=== PATIENT | female | born 1995 | race Caucasian/White ===

== ENCOUNTER 2016-10-06 20:54 | Emergency (ER) | payer OTHER ==
[~2016-10-06] VITALS: Ht 165.1 cm; Wt 90.7 kg
[~2016-10-06 20:54] MED LIST: AC325T PO; ACHD5005 PO; SERT50TA9 PO; SULF-222 PO
--- OUTSIDE RECORDS SUMMARY | 2016-10-06 20:59 | XMS REPORT | Continuity of Care Document ---
Author Author [facility] Organization [facility] Address Unknown Phone Unavailable Care Team Providers Care Distribution Field Technician Name Role Phone JANET HOBBS DO PCP Insurance Providers Payer Name Policy Number Subscriber Name Relationship [facility] [id number] Liliana Man 19 Mother Advance Directives Directive Response Recorded Date/Time Advance Directives No 05/29/14 12:02pm Health Care Power of Warning Coordination Meteorologist No 05/29/14 12:02pm Organ Donor Yes 05/29/14 12:02pm Resuscitation Status Full Code 05/29/14 12:02pm Resuscitation Status Full Code 05/29/14 11:48am Problems No known problems or medical conditions. Medications Medication Dose Route Sig Days/Qty Instructions Order Date Discontinued Date Status Trimethoprim/Sulfamethoxazole 1 Tab PO TWICE A DAY 10 DAY THERAPY- 5 DOSES TAKEN 05/29/14 Active Sertraline Hcl 50 Mg PO DAILY 05/29/14 Active Acetaminophen 650 Mg PO EVERY 8HRS PRN PAIN 05/29/14 Active Acetaminophen/Hydrocodone Bitart 1-2 Tab PO EVERY 4HRS PRN PAIN 35 Qty 05/30/14 Active Social History Social History Problem Response Recorded Date/Time Alcohol Use Denies Use 05/29/2014 12:40pm Recreational Drug Use No 05/29/2014 12:40pm Recent Foreign Travel No 05/29/2014 12:40pm Recent Infectious Disease Exposure No 05/29/2014 12:40pm Hospitalization with Isolation Denies 05/30/2014 11:55am Smoking Status Never a Smoker 05/29/2014 12:13pm Query Response Start Date Stop Date Smoking Status Never a Smoker Hospital Discharge Instructions No hospital discharge instructions. Plan of Care Discharge Date 05/30/14 11:20am Disposition 01 HOME, SELF-CARE Instructions/Education Provided ABSCESS Forms Provided PDI Surgical Prescriptions See Medications Section Referrals (Unspecified) Functional Status Query Response Date Recorded Patient Orientation Person Place Time Situation May 30, 2014 11:55am Comprehension Ability Understands Concepts May 29, 2014 6:14pm Allergies, Adverse Reactions, Alerts Allergen Type Severity Reaction Status Last Updated No Known Drug Allergies Active 05/29/14 Immunizations Name Given Type Hepatitis A No Historical Hepatitis B No Historical Tetanus Booster (TDap) Less than 5yrs Historical Vital Signs Acute Vital Signs Vital Response Date/Time Temperature (Fahrenheit) 98.2 degrees F (97.6 - 99.5) Temperature (Calculated Celsius) 36.10101 degrees C (36.4 - 37.5) Temperature Source Tympanic Pulse Rate (adult) 92 bpm (60 - 90) Respiratory Rate 18 bpm (12 - 24) O2 Sat by Pulse Oximetry 100 % (88 - 100) Blood Pressure 134/82 mm Hg Pain Pain Intensity 3 Height (Feet) 5 feet Height (Inches) 5.00 inches Height (Calculated Centimeters) 165.640938 cm Weight (Pounds) 183 pounds Weight (Ounces) 2.0 oz Weight (Calculated Grams) 19088.104 gm Weight (Calculated Kilograms) 83.406664 kilograms Calculated BMI 30.45 Results No known relevant diagnostic tests, laboratory data and/or discharge summary. Procedures Procedure Status Date Provider(s) Excision of pilonidal cyst completed 05/29/14 JAX MORA MD Encounters Encounter Location Date/Time Discharged Inpatient Via [facility] 05/29/14 11:47am
[2016-10-06] MEDS ORDERED: AMOX875T2 PO (21:14)
[2016-10-06] MEDS ORDERED: METH4TAB PO (21:14)
[2016-10-06] MEDS ORDERED: LORA1TAB59 PO (21:39)
[2016-10-06] MEDS ORDERED: KETO10TA PO (21:39)
--- NOTE | 2016-10-06 21:40 | ED EENT ---
History of Present Illness General Chief Complaint: Ear Problems Stated Complaint: L EAR PAIN Nursing Triage Note: pt c/o severe left ear pain, along with mild right ear pain. she was started on amoxicillin et prednisone yesterday. she reports pain is worsening. Source: patient History of Present Illness Time seen by provider: 21:28 Initial Comments C/O BILATERAL EAR PAIN SINCE Sunday09/30/16--LEFT > RIGHT EAR SEEN BY DR. HOBBS YESTERDAY FOR THIS PROBLEM AND WAS GIVEN RX'S FOR PREDNISONE AND AMOXIL 875 MG--STATES SHE IS NOT ANY BETTER HAS HISTORY OF FREQUENT EAR INFECTIONS --AT LEAST TWICE A YEAR HAS NOT TAKEN ANYTHING FOR PAIN AT ANY TIME NO OTHER SYMPTOMS NO FEVER PCP: DR. HOBBS Allergies and Home Medications Allergies Coded Allergies: No Known Drug Allergies (Unverified , 05/29/14) Home Medications Amoxicillin 875 Mg Tablet 875 MG PO BID (Reported) Ketorolac Tromethamine 10 Mg Tablet #15 10 MG PO Q6H Prescribed by: AMRITA AG on 10/06/162138 Loratadine/Pseudoephedrine 1 Each Tab.er.12h #20 1 EACH PO BID Prescribed by: AMRITA AG on 10/06/162138 Methylprednisolone 4 Mg Tab.ds.pk 4 MG PO (Reported) Sertraline Hcl 50 Mg Tablet 50 MG PO DAILY (Reported) Review of Systems Constitutional: no symptoms reportedNo fever Eyes: No Symptoms Reported Ears: See HPIDenies Dizziness, PainDenies Tinnitus, Denies Bloody Discharge, Denies Clear Discharge, Denies Purulent Discharge, Denies Serosanguinous Discharge, Denies Previous Injury Nose: no symptoms reported Mouth: no symptoms reported Throat: no symptoms reported Respiratory: no symptoms reported Cardiovascular: no symptoms reported Gastrointestinal: no symptoms reported : No LMP: Sep 24, 2016 (NO CONTROL) Skin: no symptoms reported Neurological: No Symptoms Reported Hematologic/Lymphatic: No Symptoms Reported Immunological/Allergic: no symptoms reported Past Jjfbmfh-Xolisj-Fkmdfw Hx Patient Social History Alcohol Use: Occasionally Uses Recreational Drug Use: No Smoking Status: Never a Smoker Recent Foreign Travel: No Contact w/Someone Who Travel: No Recent Infectious Disease Expo: No Recent Hopitalizations: No Physical Abuse Screen: No Sexual Abuse: No Immunizations Up To Date Tetanus Booster (TDap): Less than 5yrs Seasonal Allergies Seasonal Allergies: Yes Surgeries HX Surgeries: Yes (PILONIDAL CYST REMOVAL) Respiratory Hx Respiratory Disorders: No Cardiovascular Hx Cardiac Disorders: No Neurological Hx Neurological Disorders: No Reproductive System Hx Reproductive Disorders: No Genitourinary Hx Genitourinary Disorders: Yes (PAST UTI'S) Gastrointestinal Hx Gastrointestinal Disorders: No Musculoskeletal Hx Musculoskeletal Disorders: No Endocrine Hx Endocrine Disorders: No HEENT HX ENT Disorders: Yes (ALLERGIES AT TIMES) HEENT Disorders: Chronic Ear Infection Cancer Hx Cancer: No Psychosocial Hx Psychiatric Problems: Yes Behavioral Health Disorders: Anxiety Integumentary HX Skin/Integumentary Disorder: Yes (SMALL ABCESS IN BUTTOCKs AREA IN MARCH(NON SURGICAL); PILONIDAL CYST REMOVED) Blood Transfusions Hx Blood Disorders: No Family Medical History Family Medial History: Cardiovascular disease GRAND MA Diabetes mellitus 19 MOTHER Hypertension 19 MOTHER Thyroid disease [place]AND [place] Visual disorder 19 MOTHER No Family History of: Tuberculosis Physical Exam Vital Signs Vital Sign - Last 12Hours 10/06/16 10/06/16 21:11 22:12 Temp 98.4 Pulse 87 Resp 18 B/P 155/97 Pulse Ox 98 O2 Delivery Room Air General Appearance: WD/WN no apparent distress Eyes: bilateral eye EOMI, bilateral eye PERRL, bilateral eye normal inspection Ears: bilateral ear other (TMS' SCLEROTIC, INFLAMED BILATERALLY WITH EFFUSIONS) Nose: normal inspection Mouth/Throat: normal mouth inspection pharynx normal Neck: non-tender full range of motion supple normal inspectionNo lymphadenopathy (R), No lymphadenopathy (L) Cardiovascular: regular rate, rhythm no murmur Respiratory: normal breath sounds no respiratory distress no accessory muscle use 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 Referrals: JANET HOBBS DO (PCP/Family) Primary Care Physician Patient Instructions: Ear Infections (Otitis Media) (DC) Add. Discharge Instructions: DOUBLE YOUR AMOXICILLIN DOSE TO 2 PILLS TWICE A DAY CONTINUE PREDNISONE PRESCRIBED TYLENOL 1 GRAM 4 TIMES A DAY NEEDED FOR PAIN OR FEVER FOLLOW UP WITH DR. HOBBS IN 3-4 DAYS FOR FURTHER CARE All discharge instructions reviewed with patient and/or family. Voiced understanding. Scripts Ketorolac Tromethamine 10 Mg [id number] Mg PO Q6H Pain #15 TAB Prov:AMRITA AG DO 10/06/16 Loratadine/Pseudoephedrine (Claritin-D 12 Hour Tablet)1 Each Tab.er.12h1 Each PO BID #20 TAB Prov:AMRITA AG DO 10/06/16 AMRITA AG DO Oct 06, 2016 21:39
[2016-10-06] MEDS ORDERED: cefTRIAXone 1 GM (ROCEPHIN) VIAL IM ONE (21:45)
[2016-10-06] MEDS ORDERED: KETOROLAC 60 MG/2 ML VIAL IM ONE (21:45)
[2016-10-06] MEDS ORDERED: LIDOCAINE 1% INJ 20 ML (XYLOCAINE) VIAL INJ ONE (21:45)
[2016-10-06 22:12] VITALS: BP 142/97
== END 2016-10-06 22:11 | disposition home or self-care (01) ==
LOC: EDUNIT# 20:54 → ER 20:55
DX: H65.192 Other acute nonsuppurative otitis media, left ear (principal)
CPT/HCPCS: 96372; 99283

== ENCOUNTER 2020-04-30 14:02 | Day surgery (SDC) | payer BC ==
[~2020-04-30] VITALS: Ht 162.6 cm; Wt 105.5 kg
[2020-04-30] VITALS (9 sets, daily range): BP systolic 103–139; BP diastolic 59–88
[~2020-04-30 14:02] MED LIST changes: +AMOX875T2 PO; +KETO10TA PO; +LORA1TAB59 PO; +METH4TAB PO
[2020-04-30] MEDS ORDERED: ONDANSETRON 4 MG/2 ML (SDV) Z0FRAN ONE (14:18)
[2020-04-30] MEDS ORDERED: LIDOCAINE PF 2% 5 ML (XYLOCAINE) VIAL ONE (14:18)
[2020-04-30] MEDS ORDERED: proPOfol 200 MG/20 ML (DIPRIVAN) VIAL IV ONE ×2 (14:18→16:06)
[2020-04-30] MEDS ORDERED: SEVOFLURANE (ULTANE) 15 ML INHAL SOLN ONE ×4 (14:18→16:16)
[2020-04-30] MEDS ORDERED: MIDAZOLAM 2 MG/2 ML (VERSED) VIAL ONE (14:18)
[2020-04-30] MEDS ORDERED: fentaNYL INJECTION 100 MCG/2 ML AMP ONE (14:18)
[2020-04-30] MEDS ORDERED: LACTATED RINGERS 1,000 ML IV PRN (14:27)
[2020-04-30] MEDS ORDERED: ceFAZolin INJECTION 1,000 MG in WATER (STERILE) FOR INJECTION 10 ML IV ONE (14:45)
[2020-04-30 14:47] LABS: BASOPHILS % (AUTO) 0 % (0-10); EOSINOPHILS # (AUTO) 0.1 10^3/uL (0.0-0.3); EOSINOPHILS % (AUTO) 1 % (0-10); HEMATOCRIT 36 % (35-52); HEMOGLOBIN 12.1 G/DL (11.5-16.0); LYMPHOCYTES # (AUTO) 2.6 X 10^3 (1.0-4.0); LYMPHOCYTES % (AUTO) 21 % (12-44); MEAN CORPUSCULAR HEMOGLOBIN 29 PG (25-34); MEAN CORPUSCULAR HGB CONC 33 G/DL (32-36); MEAN CORPUSCULAR VOLUME 88 FL (80-99); MEAN PLATELET VOLUME 11.4 FL (7.4-10.4); MONOCYTES # (AUTO) 0.6 X 10^3 (0.0-1.0); MONOCYTES % (AUTO) 5 % (0-12); NEUTROPHILS # (AUTO) 9.2 X 10^3 (1.8-7.8); NEUTROPHILS % (AUTO) 74 % (42-75); PLATELET COUNT 340 10^3/uL (130-400); RED CELL DISTRIBUTION WIDTH 13.5 % (10.0-14.5); WHITE BLOOD COUNT 12.4 10^3/uL (4.3-11.0)
[2020-04-30] MEDS ORDERED: morphine INJ 10 MG/ML 1ML (SYR OR VIAL) IVP ONE (15:00)
[2020-04-30] MEDS ORDERED: MEPERIDINE (DEMEROL) INJ 50 MG/ML IVP ONE (15:00)
[2020-04-30] MEDS ORDERED: ONDANSETRON 4 MG/2 ML (SDV) Z0FRAN IVP PRN (15:00)
[2020-04-30] MEDS ORDERED: fentaNYL INJECTION 100 MCG/2 ML AMP IVP ONE (15:00)
--- NOTE | 2020-04-30 15:48 | Progress Note-Pre Operative ---
Pre-Operative Progress Note H&P Reviewed The H&P was reviewed, patient examined and no changes noted. Date Seen by Provider: Apr 30, 2020 Time Seen by Provider: 15:48 Date H&P Reviewed: Apr 30, 2020 Time H&P Reviewed: 15:48 Pre-Operative Diagnosis: missed MAXIMO VILLAR MD Apr 30, 2020 15:48
[2020-04-30] MEDS ORDERED: IBUP-1780 PO (15:49)
--- NOTE | 2020-04-30 15:49 | Progress Note-Post Operative ---
Post-Operative Progess Note Surgeon (s)/Housekeeping Department Worker (s) Surgeon MAXIMO VILLAR MD Housekeeping Department Worker: none Pre-Operative Diagnosis missed Post-Operative Diagnosis same Procedure & Operative Findings Date of Procedure 04/30/20 Procedure Performed/Findings d&c Anesthesia Type geta Estimated Blood Loss Estimated blood loss (mL): 50CC Specimens/Packing Specimens Removed POC/ Uterina contents MAXIMO VILLAR MD Apr 30, 2020 15:49
--- NOTE | 2020-04-30 15:50 | Discharge Inst-Surgical ---
Discharge Inst-Surgical Depart Medication/Instructions New, Converted or Re-Newed RX: RX on Chart Consults/Follow Up Patient Instructions: as directed Orders & Referrals Follow Up Appt: Call to make follow up appt. for patient in 2 weeks. Activity: Rest for 24 hours, than as tolerated. Please call in RX to patient pharmacy. Diet: As tolerated shower or tub bathe as desired. No driving for 24 hours, no alcoholic beverages for 24 hours, and nothing per vagina (no tampons, douching, or intercoarse) for 2 weeks. Patient to return to the clinic as soon as possible for: Temperature greater than 101F, Severe Pain, Foul discharge from incision or vagina, Excessive Bleeding (more than a period). Activity Activity as Tolerated: No Diet Discharge Diet: No Restrictions MAXIMO VILLAR MD Apr 30, 2020 15:50
[2020-04-30] MEDS ORDERED: HYDROmorphone 2 MG/ML VIAL (DILAUDID) ONE (16:11)
--- NOTE | 2020-04-30 16:25 | Anesthesia-General Post-Op ---
General Patient Condition Mental Status/LOC: Same as Preop Cardiovascular: Satisfactory Nausea/Vomiting: Absent Respiratory: Satisfactory Pain: Controlled Complications: Absent Post Op Complications Complications None Follow Up Care/Instructions Patient Instructions None needed. Anesthesia/Patient Condition Patient Condition Patient is doing well, no complaints, stable vital signs, no apparent adverse anesthesia problems. No complications reported per nursing. LEYDA DIAZ CRNA Apr 30, 2020 16:25
--- NOTE | 2020-04-30 17:25 | NUR ---
Receive pt form PACU on cart bed rails up x 4. Pt alert and oriented. IV infusing without difficulty.
--- NOTE | 2020-04-30 18:04 | NUR ---
Notified Dr Herrera of discharge.
--- NOTE | 2020-04-30 18:15 | NUR ---
Pt up to BR voided without difficulty. Ambulated without difficulty. Bernadette care. No c/o at this time.
--- NOTE | 2020-04-30 19:00 | NUR ---
LISA MONGE demonstrates understanding of discharge instructions and accurately returns instructions upon questioning. Copy of Post-Discharge Instructions and Medication Discharge Instructions given to patient. LISA MONGE is able to manage continuing needs after discharge. Patients belongings returned to patient. Skin dry and intact; no breakdown noted. Patient discharged from [facility]- on 04/30/2020 at 1900. LISA MONGE left floor via wheel chair, accompanied by and women services staff.
--- NOTE | 2020-04-30 22:45 | OPERATIVE REPORT ---
DATE OF SERVICE: 04/30/2020 PREOPERATIVE DIAGNOSIS: Missed at 10 plus weeks' gestation. POSTOPERATIVE DIAGNOSIS: Missed at 10 plus weeks' gestation. OPERATIVE PROCEDURE: D and C. OPERATIVE DESCRIPTION: With the patient in supine position under satisfactory general anesthesia, the patient was prepped and draped in the usual fashion for vaginal surgery after being repositioned in the dorsal lithotomy position in the [facility]. Weighted speculum was placed in the posterior fornix of vagina and cervix was grasped anteriorly with single tooth tenaculum. The uterus was sounded to 12 cm with uterine sound. The cervix was then serially dilated to a #10 Hegar dilator. A #10 curved suction curette was then introduced and a large amount of trophoblastic and decidual appearing tissue as well as blood clot and debris was evacuated from the uterine cavity. The endometrial cavity was then sharply curettaged in all 4 quadrants to good uterine cry. A curved suction curette was reintroduced and all blood clot and debris evacuated from the uterus. The curette was removed. There was minimal bleeding at the cervical os. The tenaculum was removed from the cervix. There was no bleeding from the puncture sites. With sponge, needle counts correct and hemostasis assured and blood loss around 50 to 70 mL. The patient was uneventfully awakened from her general anesthesia and transferred to recovery room in stable condition with plans for discharge home PAR. Sponge and needle counts were correct. Job ID: [id number] DocumentID: [id number] Dictated Date: 04/30/2020 16:18:55 Bellows Tester Date: 04/30/2020 22:45:06 Dictated By: MAXIMO VILLAR MD
== END 2020-04-30 19:00 | disposition home or self-care (01) ==
LOC: SDC 14:02 → WS 17:25 → SDC 19:00
PROVIDERS: ATTEND Obstetrics & Gynecology
DX: O02.1 Missed abortion (principal)
CPT/HCPCS: 36415; 85025; 87081; 88305

== ENCOUNTER → 2020-12-24 | Outpatient (CLI) | payer BC ==
[~2020-12-24] MED LIST changes: +IBUP-1780 PO
[2020-12-24 14:44] LABS: URINE CREATININE FOR RATIO 27 MG/DL (30-125)
[2020-12-24 14:46] LABS: URINE PROTEIN FOR RATIO ONLY < 6 MG/DL (6-12)
== END ==
LOC: LABNPT 14:11
PROVIDERS: ATTEND Obstetrics & Gynecology
DX: O13.9 Gestational [pregnancy-induced] hypertension without significant proteinuria, unspecified trimester (principal); Z3A.00 Weeks of gestation of pregnancy not specified
CPT/HCPCS: 82570; 84156

== ENCOUNTER → 2021-01-17 | Outpatient (CLI) | payer BC | LOC: LABNPT 09:06 | PROVIDERS: ATTEND Obstetrics & Gynecology | DX: R80.9 Proteinuria, unspecified (principal) | CPT/HCPCS: 82570; 84156 ==

== ENCOUNTER → 2021-01-27 | Outpatient (CLI) | payer BC | LOC: LABNPT 11:50 | PROVIDERS: ATTEND Obstetrics & Gynecology | DX: O14.93 Unspecified pre-eclampsia, third trimester (principal); Z3A.00 Weeks of gestation of pregnancy not specified | CPT/HCPCS: 82570; 84156 ==

== ENCOUNTER → 2021-02-15 | Outpatient (CLI) | payer BC | LOC: LABNPT 12:07 | PROVIDERS: ATTEND Obstetrics & Gynecology | DX: O13.9 Gestational [pregnancy-induced] hypertension without significant proteinuria, unspecified trimester (principal); Z3A.00 Weeks of gestation of pregnancy not specified | CPT/HCPCS: 82570; 84156 ==

== ENCOUNTER → 2021-02-21 | Outpatient (CLI) | payer BC | LOC: LABNPT 09:59 | PROVIDERS: ATTEND Obstetrics & Gynecology | DX: O13.9 Gestational [pregnancy-induced] hypertension without significant proteinuria, unspecified trimester (principal); Z3A.00 Weeks of gestation of pregnancy not specified | CPT/HCPCS: 82570; 84156 ==

== ENCOUNTER 2021-02-24 06:50 | Inpatient (IN) | payer BC ==
[~2021-02-24] VITALS: Ht 165.1 cm; Wt 113.2 kg
[2021-02-24] VITALS (56 sets, daily range): BP systolic 101–152; BP diastolic 56–93
[2021-02-24] MEDS ORDERED: D5 LR IV SOLUTION 1,000 ML IV ONE (07:34)
[2021-02-24] MEDS ORDERED: OXYTOCIN PRE-MIX DRIP 500 ML IV ONE ×2 (07:53→19:04)
[2021-02-24 07:57] LABS: BASOPHILS % (AUTO) 0 % (0-10); EOSINOPHILS # (AUTO) 0.1 10^3/uL (0.0-0.3); EOSINOPHILS % (AUTO) 1 % (0-10); HEMATOCRIT 32 % (35-52); HEMOGLOBIN 10.5 g/dL (11.5-16.0); LYMPHOCYTES # (AUTO) 2.1 10^3/uL (1.0-4.0); LYMPHOCYTES % (AUTO) 16 % (12-44); MEAN CORPUSCULAR HEMOGLOBIN 28 pg (25-34); MEAN CORPUSCULAR HGB CONC 33 g/dL (32-36); MEAN CORPUSCULAR VOLUME 87 fL (80-99); MEAN PLATELET VOLUME 12.7 fL (9.0-12.2); MONOCYTES # (AUTO) 0.7 10^3/uL (0.0-1.0); MONOCYTES % (AUTO) 5 % (0-12); NEUTROPHILS # (AUTO) 9.9 10^3/uL (1.8-7.8); NEUTROPHILS % (AUTO) 77 % (42-75); PLATELET COUNT 269 10^3/uL (130-400); WHITE BLOOD COUNT 12.8 10^3/uL (4.3-11.0)
[2021-02-24] MEDS ORDERED: OXYTOCIN PRE-MIX DRIP 500 ML IV SCH ×2 (08:00→20:00)
[2021-02-24] MEDS: D5 LR IV SOLUTION 1,000 ML IV SCH ×2 (08:14→14:30)
[2021-02-24] MEDS ORDERED: fentaNYL 2 mcg/ml BUPIVA 0.125 100 ML ONE (10:29)
[2021-02-24] MEDS ORDERED: BUPIVACAINE 0.25% 30 ML (SENSORCAINE) VIAL ONE ×2 (10:43→18:52)
[2021-02-24] MEDS ORDERED: fentaNYL INJ 100 MCG/2 ML AMP ONE ×3 (10:44→19:01)
[2021-02-24] MEDS ORDERED: PREN-8 PO (10:48)
[2021-02-24] MEDS ORDERED: LACTATED RINGERS 1,000 ML IV ONE (11:30)
[2021-02-24] MEDS ORDERED: CATHETER FLUSH 10 ML SYR IV PRN (11:30)
[2021-02-24] MEDS ORDERED: NALOXONE 0.4 MG/ML 1 ML (NARCAN) VIAL IV PRN (11:30)
[2021-02-24] MEDS ORDERED: fentaNYL 2 mcg/ml BUPIVA 0.125 100 ML IV SCH (11:30)
[2021-02-24] MEDS ORDERED: ceFAZolin 2 GM IV Premixed 50 ML ONE (17:16)
[2021-02-24] MEDS ORDERED: metroNIDAZOLE 500MG/100ML IVPB 100 ML ONE (17:16)
[2021-02-24] MEDS ORDERED: FAMOTIDINE 20MG/2ML IV (PEPCID) ONE (17:17)
[2021-02-24] MEDS ORDERED: CITRIC ACID/SOB CIT (BICITRA) 30 ML UDC ONE (17:17)
[2021-02-24] MEDS ORDERED: METOCLOPRAMIDE INJ 10 MG/2 ML (REGLAN) ONE (17:17)
[2021-02-24] MEDS: LACTATED RINGERS 1,000 ML IV PRN ×2 (17:28→19:00)
[2021-02-24] MEDS ORDERED: METOCLOPRAMIDE INJ 10 MG/2 ML (REGLAN) IV ONE (17:30)
[2021-02-24] MEDS ORDERED: CITRIC ACID/SOB CIT (BICITRA) 30 ML UDC PO ONE (17:30)
[2021-02-24] MEDS ORDERED: FAMOTIDINE 20MG/2ML IV (PEPCID) IV ONE (17:30)
[2021-02-24] MEDS ORDERED: LIDOCAINE PF 2% 5 ML (XYLOCAINE) VIAL ONE ×2 (18:39→18:56)
[2021-02-24] MEDS ORDERED: ONDANSETRON 4 MG/2 ML (SDV) Z0FRAN ONE (19:04)
[2021-02-24] MEDS ORDERED: KETOROLAC 30 MG/ML VIAL ONE (19:04)
[2021-02-24] MEDS: KETOROLAC 30 MG/ML VIAL IVP SCH (19:30)
[2021-02-24] MEDS ORDERED: oxyCODONE/APAP 5/325MG (PERCOCET 5) TABLET PO PRN (20:00)
[2021-02-24] MEDS ORDERED: ONDANSETRON 4 MG/2 ML (SDV) Z0FRAN IVP PRN (20:00)
[2021-02-24] MEDS ORDERED: BENZOCAINE/MENTHOL (DERMOPLAST) 56 ML CAN TP PRN (20:00)
[2021-02-24] MEDS: DOCUSATE SODIUM 100 MG (COLACE) CAP PO SCH (21:37)
[2021-02-24] MEDS ORDERED: oxyCODONE/APAP 10/325MG (PERCOCET 10) TABLET PO ONE (22:21)
[2021-02-24] MEDS: oxyCODONE/APAP 10/325MG (PERCOCET 10) TABLET PO PRN (22:23)
[2021-02-24] MEDS: OXYTOCIN PRE-MIX DRIP 500 ML IV SCH (23:44)
[2021-02-25] MEDS: OXYTOCIN PRE-MIX DRIP 500 ML IV SCH (01:39)
[2021-02-25] MEDS: KETOROLAC 30 MG/ML VIAL IVP SCH ×3 (01:39→20:28)
[2021-02-25 05:00] VITALS: BP 120/69
[2021-02-25 08:00] VITALS: BP 118/60
--- NOTE | 2021-02-25 08:18 | Progress Note ---
Standard Progress Note Progress Notes/Assess & Plan Date Seen by a Provider: Feb 25, 2021 Time Seen by a Provider: 08:17 Progress/Assessment & Plan This patient is without complaint. She is ambulating, voiding, tolerating oral intake well and has good pain control. Vital Signs 02/25/21 05:00 Temp 36.3 Pulse 85 Resp 18 B/P (MAP) 120/69 (86) Pulse Ox 96 O2 Delivery Room Air Vital signs are stable. Patient is afebrile. Fundus is firm below the umbilicus and nontender. The surgical incision is clean dry and intact. Extremities show no clubbing cyanosis. There is no Homans' sign. Assessment and plan postoperative day #1 status post primary delivery doing well. Plan is for routine convalescent care MAXIMO VILLAR MD Feb 25, 2021 08:18
--- NOTE | 2021-02-25 10:41 | Anesthesia-Regional Post-Op ---
Regional Patient Condition Mental Status: Alert, Oriented x3 Circulation: Same as Pre-Op Headache: Absent Sensation: Full Recovery Motor Block: Absent Post Op Complications Complications None Follow Up Care/Instructions Patient Instructions None needed. Anesthesia/Patient Condition Patient is doing well, no complaints, stable vital signs, no apparent adverse anesthesia problems. MONIQUE MIN DO Feb 25, 2021 10:41
[2021-02-25] MEDS ORDERED: IBUP-1780 PO (10:46)
[2021-02-25] MEDS ORDERED: OXYC1TAB12 PO ×2 (10:46→17:51)
[2021-02-25] MEDS ORDERED: DCS100C PO (10:46)
--- NOTE | 2021-02-25 10:47 | Discharge Inst-Surgical ---
Discharge Inst-Surgical Depart Medication/Instructions New, Converted or Re-Newed RX: RX on Chart Consults/Follow Up Patient Instructions: As directed Orders & Referrals Follow Up Appt: RTC 1 week for incision check. Call to make follow up appt. for patient in 4 weeks. Wound Care: Remove yuan, apply benzoin and steri strips. Activity Per routine post instructions. Please call in RX to patient pharmacy. Diet as tolerated Patient may shower or tub bathe as desired. Continue home meds Activity Activity as Tolerated: No Diet Discharge Diet: No Restrictions MAXIMO VILLAR MD Feb 25, 2021 10:47
[2021-02-25] MEDS ORDERED: IBUPROFEN 800 MG (MOTRIN) TAB PO ONE (12:02)
[2021-02-25] MEDS: IBUPROFEN 800 MG (MOTRIN) TAB PO SCH ×3 (12:08→23:03)
[2021-02-25] MEDS: DOCUSATE SODIUM 100 MG (COLACE) CAP PO SCH ×2 (12:08→21:43)
[2021-02-25 12:11] VITALS: BP 108/55
--- NOTE | 2021-02-25 14:45 | OPERATIVE REPORT ---
DATE OF SERVICE: 02/24/2021 PREOPERATIVE DIAGNOSES: Term in labor with failure to progress/high station. POSTOPERATIVE DIAGNOSES: Term in labor with failure to progress/high station. OPERATIVE PROCEDURE: Primary low transverse delivery of a viable male with Apgars of 8 and 9 at 1 and 5 minutes respectively, weight of 7 pounds 5 ounces. Cord blood pH of 7.31 and a time of 1859. OPERATIVE DESCRIPTION: With the patient in supine position under satisfactory epidural analgesia, the patient was prepped and draped in the usual fashion for abdominal surgery. Jones catheter was placed in the urinary bladder and left to dependent drainage. A Pfannenstiel incision was made through the skin with scalpel, the patient's abdomen entered in the usual manner. Bladder retractor placed in position, clean scalpel used to make a 4 cm hysterotomy incision transversely across the lower uterine segment that was extended by blunt dissection as well. Nj forceps were applied to facilitate the delivery of a vigorous viable male infant with Apgars and stats as noted above. was bulb suctioned on delivery of the head and again on completion of delivery. The umbilical cord was doubly clamped and cut and the infant passed to the pediatric nurse in attendance for the delivery. Cord bloods were obtained. Placenta delivered spontaneously Sanders. It was normal with a 3-vessel cord. The uterus was exteriorized and interior wiped clean with a wet laparotomy sponge. Uterine incision was closed with a running locked suture of 2-0 Vicryl. Hemostasis was satisfactory; however, the uterus was quite atonic. A modified B-Singh suture was placed using 2-0 chromic sutures in the usual manner. The uterus was then returned to abdominal cavity. All blood clot and debris removed from the abdominal cavity. With sponge and needle counts correct and hemostasis assured, anterior parietal peritoneum was closed with a running suture of 2-0 Vicryl. The rectus muscles were closed with that suture as well. The rectus fascia was closed with 2-0 Vicryl, subcutaneous tissue was closed with 2-0 Vicryl and the skin was stapled. Sponge and needle counts were correct on completion of the procedure. Estimated blood loss was around 300 mL. The patient tolerated the procedure well and was transferred to recovery room in stable condition. The infant remained in the OR with the patient. Job ID: [id number] DocumentID: [id number] Dictated Date: 02/25/2021 08:08:20 Pulp Beater Date: 02/25/2021 14:43:52 Dictated By: MAXIMO VILLAR MD
[2021-02-25] MEDS: oxyCODONE/APAP 10/325MG (PERCOCET 10) TABLET PO PRN (15:23)
[2021-02-25 16:00] VITALS: BP 126/68
[2021-02-25 23:00] VITALS: BP 134/69
[2021-02-26 04:30] VITALS: BP 128/72
[2021-02-26] MEDS: IBUPROFEN 800 MG (MOTRIN) TAB PO SCH (07:26)
--- NOTE | 2021-02-26 07:52 | History & Physical ---
History and Physical Date Seen by Provider: Feb 26, 2021 Time Seen by Provider: 07:51 This patient is a 25-year-old 1 female who was admitted on February 24, 2001 for labor induction secondary to PIH. Her has been uncomplicated. Her GBS culture was negative. Allergies are none Medications none Medical social and surgical history is all per the antepartum record HEENT exam is normal Neck is supple no lymphadenopathy no thyromegaly Abdomen is gravid soft nontender nondistended Extremities show no clubbing cyanosis. There is no Homans' sign. Pelvic exam is pending at the time of admission Assessment and plan term at 38+ weeks gestation with PIH admitted for labor induction. 38 weeks with PIH Allergies and Home Medications Allergies Coded Allergies: No Known Drug Allergies (Unverified , 04/30/20) Home Medications Docusate Sodium 100 Mg Capsule, 100 MG PO BID Prescribed by: MXAIMO CHAKRABORTY on 02/25/21 1046 Ibuprofen 800 Mg Tablet, 800 MG PO Q6H Prescribed by: MAXIMO CHAKRABORTY on 02/25/21 1046 Oxycodone HCl/Acetaminophen 1 Each Tablet, 1 TAB PO Q4HR PRN for PAIN-MODERATE (5-7) Prescribed by: MAXIMO CHAKRABORTY on 02/25/21 1046 Oxycodone HCl/Acetaminophen 1 Each Tablet, 1 TAB PO Q8H PRN for PAIN-MODERATE Prescribed by: MAXIMO CHAKRABORTY on 02/25/21 1751 Vit W-Ca,Fe,FA(<1 mg) 1 Each Tablet, 1 EACH PO DAILY, (Reported) Last Action: New Order Patient Home Medication List Home Medication List Reviewed: Yes MAXIMO VILLAR MD Feb 26, 2021 07:52
--- NOTE | 2021-02-26 07:53 | Progress Note ---
Standard Progress Note Progress Notes/Assess & Plan Date Seen by a Provider: Feb 26, 2021 Time Seen by a Provider: 07:52 Progress/Assessment & Plan This patient is without complaint. She is ambulating, voiding, tolerating oral intake well and has good pain control. Vital Signs 02/25/21 05:00 Temp 36.3 Pulse 85 Resp 18 B/P (MAP) 120/69 (86) Pulse Ox 96 O2 Delivery Room Air Vital signs are stable. Patient is afebrile. Fundus is firm below the umbilicus and nontender. The surgical incision is clean dry and intact. Extremities show no clubbing cyanosis. There is no Homans' sign. Assessment and plan postoperative day #1 status post primary delivery doing well. Plan is for routine convalescent care February 26, 2021 Patient is without complaint. She is ambulating, voiding, tolerating oral intake well has good pain control. Patient is requesting discharge home. Vital Signs Date Time Temp Pulse Resp B/P (MAP) Pulse Ox O2 Delivery O2 Flow Rate FiO2 02/26/21 04:30 36.5 88 18 128/72 (90) 97 Room Air 02/25/21 23:00 36.7 84 18 134/69 (90) 97 Room Air 02/25/21 16:00 36.6 78 18 126/68 (87) 96 Room Air 02/25/21 12:11 36.9 81 18 108/55 (72) 97 Room Air 02/25/21 08:00 36.7 84 18 118/60 (79) 97 Room Air I & O 02/26/21 07:00 Intake Total 800 ml Balance 800 ml Fundus is firm below the umbilicus and nontender. Extremities show no clubbing cyanosis. There is no Homans' sign. Assessment and plan Postoperative day #2 status post primary delivery doing well. Plan is for discharge home with follow-up in clinic Final Diagnosis 38-week primary delivery MAXIMO VILLAR MD Feb 26, 2021 07:53
[2021-02-26 09:56] VITALS: BP 144/82
[2021-02-26] MEDS: DOCUSATE SODIUM 100 MG (COLACE) CAP PO SCH (10:12)
[2021-02-26 11:20] VITALS: BP 144/82
[2021-03-01] MEDS ORDERED: IBUPROFEN 800 MG (MOTRIN) TAB PO SCH (20:00)
== END 2021-02-26 11:20 | disposition home or self-care (01) | DRG 788 ==
LOC: LDRP 06:50 → WS 20:35
PROVIDERS: ADMIT Obstetrics & Gynecology; ATTEND Obstetrics & Gynecology
PROC: 10D00Z1 Extraction of Products of Conception, Low, Open Approach (ICD-10-PCS; principal; 2021-02-25)
DX: O13.4 Gestational [pregnancy-induced] hypertension without significant proteinuria, complicating childbirth (principal); Z3A.38 38 weeks gestation of pregnancy; Z37.0 Single live birth; O62.0 Primary inadequate contractions; O32.4XX0 Maternal care for high head at term, not applicable or unspecified
CPT/HCPCS: 36415; 85025; 86850; 86900; 86901

== ENCOUNTER 2022-03-19 17:32 | Emergency (ER) | payer BC ==
[~2022-03-19] VITALS: Ht 162 cm; Wt 103.0 kg
[~2022-03-19 17:32] MED LIST changes: +DOCU-239 PO; +OXYC1TAB12 PO; +PREN-8 PO
--- NOTE | 2022-03-19 18:13 | ED Back Pain ---
General Chief Complaint: Back Problems Stated Complaint: BACK PAIN Nursing Triage Note: PT CO OF LOW BACK PAIN SINCE SUNDAY, WORSENING SUNDAY NITE PAIN GOES FROM 5-10/10 AT TIMES. DENIES ANY PROB W URINATION. PT WAS SEEN AT [facility] SUNDAY. DENIES INJURY Source of Information: Patient Exam Limitations: No Limitations History of Present Illness Date Seen by Provider: Mar 19, 2022 Time Seen by Provider: 18:12 Initial Comments Patient is a 26-year-old female who presents the ED with low back pain. Back pain has been ongoing since . She states she does work at [employer] and does lift heavy objects. Denies of any specific injury. Pain is described as sharp bilateral lower back. History of back pain but denies any similar type pain. She denies of any dark urine, frequent urination, abdominal pain, diar chele. She states she has vomited twice secondary to the pain. Has been taking ibuprofen without much improvement. She denies of any concern for , vaginal discharge, vaginal bleeding, chest pain, shortness of breath. No distal numbness and tingling to her lower extremity Allergies and Home Medications Allergies Coded Allergies: No Known Drug Allergies (Unverified , 04/30/20) Patient Home Medication List Home Medication List Reviewed: Yes Cephalexin (Cephalexin) 500 Mg Tablet, 500 MG PO TID Prescribed by: MICHAEL PETERS on 03/19/221846 Docusate Sodium (Dok) 100 Mg Capsule, 100 MG PO BID Prescribed by: MAXIMO CHAKRABORTY on 02/25/21 1046 Hydrocodone/Acetaminophen (Hydrocodone-Acetamin 5-325 mg) 5 Mg-325 Mg Tablet, 1 TAB PO Q4H PRN for PAIN-MODERATE (5-7) Prescribed by: MICHAEL PETERS on 03/19/22 184 Ibuprofen (Ibuprofen) 800 Mg Tablet, 800 MG PO Q6H Prescribed by: MAXIMO CHAKRABORTY on 02/25/21 1046 Oxycodone HCl/Acetaminophen (Percocet 10-325 mg Tablet) 1 Each Tablet, 1 TAB PO Q4HR PRN for PAIN-MODERATE (5-7) Prescribed by: MAXIMO CHAKRABORTY on 02/25/21 1046 Oxycodone HCl/Acetaminophen (Percocet 10-325 mg Tablet) 1 Each Tablet, 1 TAB PO Q8H PRN for PAIN-MODERATE Prescribed by: MAXIMO CHAKRABORTY on 02/25/21 1751 Vit W-Ca,Fe,FA(<1 mg) ( Formula) 1 Each Tablet, 1 EACH PO DAILY, (Reported) Entered as Reported by: PATRICIA DIOR on 02/24/21 1048 Review of Systems Constitutional: No chills, No diaphoresis, No malaise, No weakness EENTM: No ear pain, No blurred vision, No double vision Respiratory: No cough, No dyspnea on exertion, No phlegm, No short of breath Cardiovascular: No chest pain, No edema Gastrointestinal: No abdominal pain, No diarrhea, No nausea, No vomiting Genitourinary: No decreased output, No discharge, No hematuria, No hesitancy Musculoskeletal: back pain; No joint pain; muscle pain, muscle stiffness All Other Systems Reviewed Negative Unless Noted: Yes Past Ocxkwph-Vqgrgt-Dkxuks Hx Patient Social History Tobacco Use?: No Substance use?: No Alcohol Use?: No Pt feels they are or have been: No Immunizations Up To Date Tetanus Booster (TDap): Less than 5yrs First/Initial COVID19 Vaccinat: 2020 Second COVID19 Vaccination Christopher: 2019 COVID19 Vaccine Leadership Program Internship: [employer] Seasonal Allergies Seasonal Allergies: Yes Past Medical History Surgeries: Yes (PILONIDAL CYST REMOVAL) Respiratory: No Currently Using CPAP: No Currently Using BIPAP: No Cardiac: Yes Hypertension Neurological: No Reproductive Disorders: No Genitourinary: No Gastrointestinal: No Musculoskeletal: No Endocrine: No Chronic Ear Infection Cancer: No Psychosocial: Yes Anxiety Integumentary: Yes (SMALL ABCESS IN BUTTOCKs AREA IN MARCH(NON SURGICAL); PILONIDAL CYST REMOVED) Blood Disorders: No Family Medical History Cardiovascular disease [place] Diabetes mellitus 19 MOTHER Hypertension 19 MOTHER Thyroid disease [place] Visual disorder 19 MOTHER No Family History of: Tuberculosis Physical Exam Vital Signs Vital Signs - First Documented 03/19/22 17:55 Temp 37.1 Pulse 94 Resp 18 B/P (MAP) 161/105 (123) Pulse Ox 98 Capillary Refill : Less Than 3 Seconds Height, Weight, BMI Height: 5'5" Weight: 200lbs. 2.0oz. 90.746992op; 39.00 BMI Method:Stated General Appearance: No Apparent Distress, WD/WN HEENT: PERRL/EOMI, TMs Normal, Normal ENT Inspection, Pharynx Normal Neck: Full Range of Motion, Normal Inspection, Non Tender, Supple Cardiovascular: Regular Rate, Rhythm, No Edema, No Gallop, No JVD Respiratory: Chest Non Tender, Lungs Clear, Normal Breath Sounds, No Accessory Muscle Use Gastrointestinal: Normal Bowel Sounds, No Organomegaly, No Pulsatile Mass, Non Tender, Soft Extremity: Normal Capillary Refill, Normal Inspection, Normal Range of Motion, Non Tender Neurologic/Psychiatric: Alert, Oriented x3, No Motor/Sensory Deficits, Normal 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, 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 as Tested Skin: Normal Color, Warm/Dry Progress/Results/Core Measures Results/Orders Lab Results Laboratory Tests Test 03/19/22 18:00 03/19/22 18:44 Range/Units Urine Color YELLOW Urine Clarity CLEAR Urine pH 6.0 5-9 Urine Specific [place] >=1.030 1.016-1.022 Urine Protein NEGATIVE NEGATIVE Urine Glucose (UA) NEGATIVE NEGATIVE Urine Ketones NEGATIVE NEGATIVE Urine Nitrite NEGATIVE NEGATIVE Urine Bilirubin NEGATIVE NEGATIVE Urine Urobilinogen 0.2 < = 1.0 MG/DL Urine Leukocyte Esterase NEGATIVE NEGATIVE Urine RBC (Auto) TRACE-I H NEGATIVE Urine RBC RARE /HPF Urine WBC NONE /HPF Urine Squamous Epithelial Cells 2-5 /HPF Urine Crystals NONE /LPF Urine Bacteria LARGE H /HPF Urine Casts NONE /LPF Urine Mucus MODERATE H /LPF Urine Culture Indicated YES Urine Test NEGATIVE NEGATIVE My Orders Orders - KRYSTYNA BOLTON Urinalysis (03/19/22 17:36) Urine Culture (03/19/22 18:00) Hcg,Qualitative Urine (03/19/22 18:44) Rx-Hydrocodone/Apap 5-325 Mg (Rx-Vicodin (03/19/22 19:00) Cephalexin Capsule (Keflex Capsule) (03/19/22 19:01) Medications Given in ED Current Medications Medications Dose Ordered Sig/Curly Route Start Time Stop Time Status Last Admin Dose Admin Acetaminophen/ Hydrocodone Bitart 1 ea ONCE ONCE PO 03/19/22 19:00 03/19/22 19:01 DC 03/19/22 18:59 1 EA Vital Signs/I&O 03/19/22 03/19/22 17:55 18:52 Temp 37.1 37.1 Pulse 94 94 Resp 18 18 B/P (MAP) 161/105 (123) 161/105 Pulse Ox 98 98 Blood Pressure Mean: 123 Departure Communication (PCP) Patient denies of any known injury. She does lift heavy objects at work works at [employer]. She has no bowel or urine incontinence, saddle paresthesia, lower extremity weakness or sensory changes. No specific urinary symptoms. Pain appears to be bilateral lower lumbar spine. Urinalysis concerning for UTI. She was given dose of Keflex will discharge with Keflex. She has no thoracic or lumbar midline tenderness. Has been taking ibuprofen with some improvement. She is requesting something a little stronger to help with her breakthrough pain. We will provide a few days worth of hydrocodone. Due to pain bilateral unlikely kidney stone. No radiating pain to the abdomen. She did vomited twice which would be more concern for UTI versus kidney stone. Due to no red blood cells in the urine imaging was held at this time. Recommend oral hydration. Provided work note. Will discharge with Keflex. If any worsening symptoms return back to ED for further evaluation and imaging. Due to the location appears to be more musculoskeletal. However she had no significant tenderness on palpation. Pain appears to be worse when she lies down Impression Primary Impression: Back pain Additional Impression: UTI (urinary tract infection) Disposition: 01 HOME, SELF-CARE Condition: Stable Departure-Patient Inst. Decision time for Depature: 18:47 Referrals: JANET HOBBS DO (PCP/Family) Primary Care Physician Patient Instructions: Urinary Tract Infection, Adult (DC), Back Muscle Strain (DC) Scripts Hydrocodone/Acetaminophen (Hydrocodone-Acetamin 5-325 mg) 5 Mg-325 Mg Tablet 1 TAB PO Q4H PRN for PAIN-MODERATE (5-7), #8 TAB Prov: KRYSTYNA BOLTON 03/19/22 Cephalexin (Cephalexin) 500 Mg Tablet 500 MG PO TID for 7 Days, #21 TAB Prov: KRYSTYNA BOLTON 03/19/22 Work/School Note: Work Release Form Date Seen in the Emergency Department: Mar 19, 2022 Return to Work: Mar 22, 2022 KRYSTYNA BOLTON Mar 19, 2022 18:13
[2022-03-19 18:22] LABS: BILIRUBIN,URINE NEGATIVE (NEGATIVE); CLARITY,URINE CLEAR; COLOR,URINE YELLOW; GLUCOSE, URINE (UA) NEGATIVE (NEGATIVE); KETONES,URINE NEGATIVE (NEGATIVE); LEUKOCYTE ESTERASE ,URINE NEGATIVE (NEGATIVE); NITRITE,URINE NEGATIVE (NEGATIVE); PROTEIN,URINE NEGATIVE (NEGATIVE)
[2022-03-19 18:41] LABS: BACTERIA,URINE LARGE /HPF; RBC,URINE RARE /HPF
[2022-03-19] MEDS ORDERED: CEPH500T PO (18:47)
[2022-03-19] MEDS ORDERED: ACHD5005 PO (18:47)
[2022-03-19 18:52] VITALS: BP 161/105
[2022-03-19] MEDS ORDERED: CEPHALEXIN 250 MG (KEFLEX) CAP PO STA (19:01)
== END 2022-03-19 19:05 | disposition home or self-care (01) ==
LOC: EDUNIT# 17:32 → ER 17:33
DX: M54.50 Low back pain, unspecified (principal); N39.0 Urinary tract infection, site not specified; Z32.02 Encounter for pregnancy test, result negative; X50.0XXA Overexertion from strenuous movement or load, initial encounter; Y92.59 Other trade areas as the place of occurrence of the external cause; Y99.0 Civilian activity done for income or pay
CPT/HCPCS: 81000; 84703; 87088; 99282